=== PATIENT | female | born 1960 | race Caucasian/White ===

== ENCOUNTER 2021-05-20 09:15 | Inpatient (IN) | payer MEDICARE, MEDICAID, SELFPAY ==
[2021-05-20] VITALS (13 sets, daily range): BP systolic 124–141; BP diastolic 68–76; PULSE 86–116; RESP 16–26; TEMP 36.3–36.9; O2SAT 84–96; BMI 54.7; BMI 56.0
--- NOTE | 2021-05-20 09:18 | XRR_ITS ---
PROCEDURE INFORMATION: Exam: XR Chest Exam date and time: 05/20/2021 9:18 AM Age: 61 years old Clinical indication: Cough and dyspnea; Additional info: Dyspnea/cough TECHNIQUE: Imaging protocol: XR of the chest. Views: 1 view. COMPARISON: No relevant prior studies available. FINDINGS: Lungs: Right lower lobe interstitial congestion is seen. Right upper lobe and left lung are clear. No consolidation. Pleural spaces: Unremarkable. No pleural effusion. No pneumothorax. Heart/Mediastinum: Unremarkable. No cardiomegaly. Bones/joints: Unremarkable. XR/XR chest 1V portable [id number] IMPRESSION: 1. Right lower lobe interstitial congestion 2. Otherwise No acute findings.
--- NOTE | 2021-05-20 09:19 | ECG_ITS ---
[facility] Test Date: 2021-05-20 Pat Name: Melissa Mackenzie Department: Room: Gender: Female Senior Support Engineer: : 1960 Requested By: Joey Shoemaker Order Number: [id number] Jorgito MD: Daly Sebastian M.D. Measurements Intervals Ramona Rate: 102 P: 57 MS: 148 QRS: 1 QRSD: 106 T: 45 QT: 348 QTc: 455 Interpretive Statements SINUS TACHYCARDIA POSSIBLE LEFT ATRIAL ENLARGEMENT [-0.1mV P-WAVE IN V1/V2] SEPTAL MYOCARDIAL INFARCTION , OF INDETERMINATE AGE [40+ ms Q WAVE IN V1/V2] No previous ECG available for comparison Electronically Signed On 05-20-2021 17:04:46 FOOD SANITARIAN by Daly Sebastian M.D. [id number]
[2021-05-20 09:24] LABS: ABG PCO2 86.1 mmHg (35-45); ABG PH Result 7.34 (7.35-7.45); Arterial Blood Gas Hematocrit 43.9 % (37-47); Base Excess ABG 15.5 mmol/L (-2.0-2.0); Blood Gas Allen Test Pos; Blood Gas Operator Identificat GD; Blood Gas Sample Site Radial, right; Blood Gas Sample Type Arterial; Carboxyhemoglobin 3.7 %THgb (0.4-20.1); HGB O2 Sat 78.5 % (95-100); Ionized Calcium Level - ABG 1.2 mmol/L (1.1-1.4); Methemoglobin 0.8 % (0.4-1.5); Oxygen Device NC; Oxygen Saturation ABG 82.2; PO2 ABG 46.7 mmHg (80.0-100.0); Potassium Level - ABG 4.8 mmol/L (3.5-5.0); Total Hemoglobin 14.3 g/dL (12-16)
--- NOTE | 2021-05-20 09:36 | W.ED.SOB ---
HPI - SOB/Dyspnea General: Chief Complaint: Shortness of Breath/Dyspnea Stated Complaint: Shortness of breath Time Seen by Provider: 05/20/21 09:17 Source: patient Mode of arrival: ambulatory Limitations: no limitations History of Present Illness: HPI Narrative: 61-year-old female presents via EMS with acute hypoxic respiratory failure report of sats 82% on 4 L. Normally she wears 2 L by nasal cannula she is been turning it up to 4 L on arrival here she is continued hypoxic she was given several nebulizer treatments and Solu-Medrol in route as well as nebulized Decadron. On arrival here patient continues to be hypoxic in the low 80s on EMS BiPAP and then on 6 L by nasal cannula she was swapped to an nonrebreather sats improved into the low 90s. She denies any chest pain she has had increased swelling in her leg and significant orthopnea increased cough that has been nonproductive MD elicited complaint: shortness of breath and cough Onset (ago): hour(s) Timing: constant Severity: severe Exacerbating factors: lying flat, exertion and coughing Associated symptoms: Reports chest congestion, cough, myalgias, nausea and orthopnea; Deny abdominal pain, chest pain, diaphoresis, dizziness, extremity pain, fever(s), hemoptysis, lightheadedness, palpitations, paresthesias, polydipsia, polyuria, rash, sense of impending doom, syncope or vomiting Treatment prior to arrival: oxygen, bronchodilator and other (Nebulized steroids) Review of Systems Const: Denies: fever(s) or diaphoresis ENMT: Denies: throat pain, ear or mastoid pain, nasal discharge or nasal congestion Card: Reports: orthopnea; Denies: chest pain, palpitations, lightheadedness or syncope Resp: Reports: dyspnea, non-productive cough and chest congestion; Denies: hemoptysis GI: Reports: nausea; Denies: abdominal pain or vomiting : Denies: flank pain, difficulty voiding, dysuria, urinary frequency or urinary urgency Musc: Denies: extremity pain Skin/Breast: Denies: rash or pruritus Neuro: Denies: dizziness Endo: Denies: polyuria or polydipsia PFSH ED PFSH: Medical History COPD (chronic obstructive pulmonary disease) Morbid obesity Sleep apnea Social History Smoking and tobacco status: former smoker Alcohol intake: never Physical Exam Const: GENERAL APPEARANCE: cooperative and comfortable NUTRITIONAL APPEARANCE: obese ORIENTATION/CONSCIOUSNESS: Yes awake, Yes oriented to person, Yes oriented to place and Yes oriented to time HENMT: COMMON NORMALS: normocephalic HEAD & SCALP: normocephalic Resp: EFFORT & INSPECTION: Yes tachypneic, Yes labored, Yes grunting and Yes Actively coughing AUSCULTATION: crackles and wheezes Cardio: COMMON NORMALS: No murmurs present (Cardio) RATE: tachycardic GI: COMMON NORMALS: Soft to palpation and No hepatosplenomegaly present AUSCULTATION: Yes normoactive bowel sounds PALPATION: Yes Soft to palpation, No Tenderness to palpation present (GI), No Guarding due to palpation present (GI) and Yes No hepatosplenomegaly present Extremity: GENERAL: Yes edema Neuro: SENSORIUM/ORIENTATION: Yes oriented to person, Yes oriented to place and Yes oriented to time Course Vital Signs: Vital signs: Vital Signs Temperature 98.2 F 05/20/21 09:16 Pulse Rate 102 H 05/20/21 09:41 Respiratory Rate 18 05/20/21 09:24 Blood Pressure 128/73 05/20/21 09:24 Pulse Oximetry 93 05/20/21 09:41 MDM - SOB/Dyspnea Medical Decision Making Patient appears to be more fluid overloaded. COVID is negative. She is given Lasix and covering her with antibiotics as well. Discussed with Dr. Cherry orders written. She was given Lasix here in the emergency room. Echocardiogram ordered as well. Medical Records I reviewed the patient's medical records. Lab Data I reviewed the patient's lab results. : 05/20/21 09:47 05/20/21 09:47 Labs/Radiology: Radiology Impressions Chest X-Ray 05/20/21 09:18 IMPRESSION: 1. Right lower lobe interstitial congestion 2. Otherwise No acute findings. Laboratory Results WBC 8.3 10^3/uL (4.0-10.0) 05/20/21 09:47 RBC 4.90 10^6/uL (4.1-5.3) 05/20/21 09:47 Hgb 13.8 g/dL (11.5-15.3) 05/20/21 09:47 Hct 48.9 % (37.0-47.0) H 05/20/21 09:47 MCV 99.8 fl (81-99) H 05/20/21 09:47 MCH 28.2 pg (28.0-34.0) 05/20/21 09:47 MCHC 28.2 g/dL (30.0-36.0) L 05/20/21 09:47 RDW 15.9 % (12.1-15.1) H 05/20/21 09:47 Plt Count 170 10^3/cmm (130-400) 05/20/21 09:47 MPV 10.8 fL (7.4-10.4) H 05/20/21 09:47 Neut % (Auto) 85.2 % 05/20/21 09:47 Lymph % (Auto) 10.0 % 05/20/21 09:47 [place] % (Auto) 3.7 % 05/20/21 09:47 Eos % (Auto) 0.4 % 05/20/21 09:47 Baso % (Auto) 0.2 % 05/20/21 09:47 Neut # (Auto) 7.08 10^3/uL (1.8-7.7) 05/20/21 09:47 Lymph # (Auto) 0.8 10^3/uL (0.8-4.8) 05/20/21 09:47 [place] # (Auto) 0.3 10^3/uL (0.2-0.9) 05/20/21 09:47 Eos # (Auto) 0.0 10^3/uL (0.0-0.8) 05/20/21 09:47 Baso # (Auto) 0.0 10^3/uL (0.0-0.1) 05/20/21 09:47 Nucleated RBC % (auto) 0 % 05/20/21 09:47 Nucleated RBCs # 0.0 /100WBC 05/20/21 09:47 Specimen Type Arterial 05/20/21 11:20 Sample Site Radial, left 05/20/21 11:20 ABG pH 7.38 (7.35-7.45) 05/20/21 11:20 ABG pCO2 78.5 mmHg (35-45) H* 05/20/21 11:20 ABG pO2 61.0 mmHg (80.0-100.0) L 05/20/21 11:20 ABG HCO3 45.9 mmol/L (22-26) H 05/20/21 11:20 ABG O2 Saturation 92.7 05/20/21 11:20 ABG Base Excess 16.2 mmol/L (-2.0-2.0) H 05/20/21 11:20 Irineo Test Pos 05/20/21 11:20 A-a O2 Gradient 17.4 mmHg (5-10) H 05/20/21 11:20 Hematocrit 45.6 % (37-47) 05/20/21 11:20 Hgb O2 Saturation 88.9 % (95-100) L 05/20/21 11:20 Carboxyhemoglobin 3.4 %THgb (0.4-20.1) 05/20/21 11:20 Methemoglobin 0.7 % (0.4-1.5) 05/20/21 11:20 Total Hemoglobin 14.9 g/dL (12-16) 05/20/21 11:20 Sodium 141.0 mmol/L (131-143) 05/20/21 11:20 Potassium 4.7 mmol/L (3.5-5.0) 05/20/21 11:20 Glucose 256.0 mg/dL (70-115) H 05/20/21 11:20 Ionized Calcium 1.2 mmol/L (1.1-1.4) 05/20/21 11:20 O2 Delivery Device Bipap 05/20/21 11:20 O2 Liters/Min 6.0 % 05/20/21 09:10 FiO2 40.0 % 05/20/21 11:20 Travel Freight And Passenger Agent ID [id number] 05/20/21 11:20 Sodium 140 mmol/L (136-145) 05/20/21 09:47 Potassium 5.0 mmol/L (3.5-5.1) 05/20/21 09:47 Chloride 94 mmol/L (98-107) L 05/20/21 09:47 Carbon Dioxide 35 mmol/L (22-29) H 05/20/21 09:47 Anion Gap 16.0 (5-19) 05/20/21 09:47 BUN 10 mg/dL (8-23) 05/20/21 09:47 Creatinine 0.4 mg/dL (0.5-0.9) L 05/20/21 09:47 GFR Calculation 161.2 mL/min (90-130) H 05/20/21 09:47 Glucose 236 mg/dL (65-115) H 05/20/21 09:47 Calculated Osmolality 297 mOsm/kg (285-295) H 05/20/21 09:47 Calcium 9.8 mg/dL (8.5-10.5) 05/20/21 09:47 Total Bilirubin 0.4 mg/dL (0.15-1.2) 05/20/21 09:47 AST 18 U/L (0-32) 05/20/21 09:47 ALT 13 U/L (0-33) 05/20/21 09:47 Alkaline Phosphatase 105 IU/L (35-105) 05/20/21 09:47 Troponin T Baseline 16 ng/L (0-10) H 05/20/21 09:47 Troponin T 120 Minute 15.27 ng/L (0-10) H 05/20/21 12:14 Delta Troponin T -0.73 ABS# (0-10) L 05/20/21 12:14 Total Protein 6.9 g/dL (6.6-8.7) 05/20/21 09:47 Albumin 3.9 g/dL (3.5-5.2) 05/20/21 09:47 Globulin 3.0 g/dL (1.3-4.6) 05/20/21 09:47 Coronavirus 229E (PCR) Not detected (NOT DETECT) 05/20/21 09:37 SARS-CoV-2 (PCR) Not detected (NOT DETECT) 05/20/21 09:37 Discharge Plan Discharge Patient Disposition: Admitted As Inpatient Clinical Impression: Congestive heart failure, COPD (chronic obstructive pulmonary disease), Sleep apnea, Morbid obesity, Acute hypercapnic respiratory failure Prescriptions: No Action Advair Diskus 250-50 mcg/dose blister with device 1 ea inhalation BID 0RF Vitamin C 1,000 mg Tablet 1,000 mg PO DAILY 0RF albuterol sulfate 2.5 mg /3 mL (0.083 %) solution for nebulization 2.5 mg inhalation QID PRN (Reason: Shortness Of Breath) 0RF aspirin 325 mg Tablet 325 mg PO BID 0RF glipizide 10 mg tablet 10 mg PO BID 0RF potassium chloride 20 mEq tablet,ER particles/crystals 20 meq PO DAILY 0RF Super B Complex Tablet 1 tab PO DAILY 0RF albuterol sulfate 90 mcg/actuation HFA aerosol inhaler 2 puff INHALATION Q4H PRN (Reason: Shortness Of Breath) 0RF lisinopril 40 mg tablet 40 mg PO QAM 0RF vitamin E 400 unit Capsule 400 unit PO DAILY 0RF Cinnamon 500 mg Capsule 1,000 mg PO DAILY 0RF Vitamin D3 50 mcg (2,000 unit) Capsule 50 mcg PO DAILY 0RF magnesium oxide 400 mg magnesium Tablet 400 mg PO BID 0RF Gluctrol 1 tab PO DAILY 0RF Referrals: Zachary Sherwood [Primary Care Provider] - Patient Instructions: Opioid Safety Coding Level of Care Code ED Tax Senior Associate for [employer] Fwd Exam Detailed
[2021-05-20 10:06] LABS: Basophils % 0.2 %; Eosinophils % 0.4 %; Hematocrit 48.9 % (37.0-47.0); Hemoglobin 13.8 g/dL (11.5-15.3); Lymphocytes # 0.8 10^3/uL (0.8-4.8); Mean Corpuscular HGB Conc 28.2 g/dL (30.0-36.0); Mean Corpuscular Hemoglobin 28.2 pg (28.0-34.0); Mean Corpuscular Volume 99.8 fl (81-99); Mean Platelet Volume 10.8 fL (7.4-10.4); Monocytes # 0.3 10^3/uL (0.2-0.9); Monocytes % 3.7 %; Neutrophils # 7.08 10^3/uL (1.8-7.7); Neutrophils % 85.2 %; Nucleated Red Blood Cells % 0 %; Platelet Count 170 10^3/cmm (130-400); Red Cell Distribution Width 15.9 % (12.1-15.1); White Blood Count 8.3 10^3/uL (4.0-10.0)
[2021-05-20 10:22] LABS: Alanine Aminotransferase 13 U/L (0-33); Albumin Level 3.9 g/dL (3.5-5.2); Alkaline Phosphatase 105 IU/L (35-105); Blood Urea Nitrogen 10 mg/dL (8-23); Calcium 9.8 mg/dL (8.5-10.5); Carbon Dioxide 35 mmol/L (22-29); Chloride 94 mmol/L (98-107); Glomerular Filtration Rate 161.2 mL/min (90-130); Glucose 236 mg/dL (65-115); Osmolality Calculated 297 mOsm/kg (285-295); Sodium 140 mmol/L (136-145); Total Bilirubin 0.4 mg/dL (0.15-1.2); Total Protein 6.9 g/dL (6.6-8.7)
[2021-05-20 10:25] LABS: Aspartate Amino Transferase 18 U/L (0-32)
[2021-05-20 10:33] LABS: Troponin(5th) Baseline 16 ng/L (0-10)
--- NOTE | 2021-05-20 10:37 | PC.PHAR ---
pt states she has a person from [facility] named burak that sets up her [phone]-burak states the pts stop taking her glipizide 10mg bid last week-states the pt only took her pravastatin 40mg for 3 weeks then stop taking ext med history shows last filled 03/29/21 30d/s-states the pt was suppose to be taking metformin 1000mg bid states the pt hasnt taken in months ext med history shows last filled 500mg bid on 01/29/21 37d/s-burak states the pt takes her otc meds like she should-notes are made in the pharmacy comments
[2021-05-20] MEDS: FUROsemide 10 mg/mL SDV 4mL 40 MG IVP ×2 (11:14→20:20)
--- NOTE | 2021-05-20 11:19 | ECG_ITS ---
[facility] Test Date: 2021-05-20 Pat Name: Melissa Mackenzie Department: Room: Gender: Female Vice President Fixed Income: : 1960 Requested By: Joey Shoemaker Order Number: [id number] Jorgito MD: Daly Sebastian M.D. Measurements Intervals Canones Rate: 108 P: 117 NH: 165 QRS: 203 QRSD: 97 T: 138 QT: 323 QTc: 434 Interpretive Statements SINUS TACHYCARDIA ARM LEADS REVERSED [INVERTED P AND QRS IN I] ABNORMAL RHYTHM ECG Compared to ECG 05/20/2021 09:30:11 Myocardial infarct finding no longer present Electronically Signed On 05-20-2021 17:20:43 GLASS ARTIST by Daly Sebastian M.D. [email or web address].[employer]/store/OM/[id number]
[2021-05-20 11:36] LABS: ABG PCO2 78.5 mmHg (35-45); ABG PH Result 7.38 (7.35-7.45); Alveolar-Arterial Oxygen Gradi 17.4 mmHg (5-10); Arterial Blood Gas Hematocrit 45.6 % (37-47); Base Excess ABG 16.2 mmol/L (-2.0-2.0); Blood Gas Allen Test Pos; Blood Gas Operator Identificat GD; Blood Gas Sample Site Radial, left; Blood Gas Sample Type Arterial; Carboxyhemoglobin 3.4 %THgb (0.4-20.1); HCO3 ABG 45.9 mmol/L (22-26); HGB O2 Sat 88.9 % (95-100); Ionized Calcium Level - ABG 1.2 mmol/L (1.1-1.4); Methemoglobin 0.7 % (0.4-1.5); Oxygen Device BIPAP; Oxygen Saturation ABG 92.7; Potassium Level - ABG 4.7 mmol/L (3.5-5.0); Total Hemoglobin 14.9 g/dL (12-16)
[2021-05-20 11:46] LABS: Adenovirus Not Detected (NOT DETECT); Chlamydia Pneumoniae Not Detected (NOT DETECT); Coronavirus 229E,HKU1,NL63,OC4 Not Detected (NOT DETECT); Human Metapneumovirus Not Detected (NOT DETECT); Human Rhinovirus/Enterovirus Not Detected (NOT DETECT); Influenza A Not Detected (NOT DETECT); Influenza A H1 Not Detected (NOT DETECT); Influenza A H1-2009 Not Detected (NOT DETECT); Influenza A H3 Not Detected (NOT DETECT); Influenza B Not Detected (NOT DETECT); Mycoplasma Pneumoniae Not Detected (NOT DETECT); Parainfluenza Virus Type 1 Not Detected (NOT DETECT); Parainfluenza Virus Type 2 Not Detected (NOT DETECT); Parainfluenza Virus Type 3 Not Detected (NOT DETECT); Parainfluenza Virus Type 4 Not Detected (NOT DETECT); Respiratory Syncytial Virus A Not Detected (NOT DETECT); Respiratory Syncytial Virus B Not Detected (NOT DETECT); SARS-COV-2 Not Detected (NOT DETECT)
[2021-05-20 12:40] LABS: Troponin 5 2HR 15.27 ng/L (0-10)
[2021-05-20 12:41] LABS: Troponin 5 2HR Delta -0.73 ABS# (0-10)
--- NOTE | 2021-05-20 12:47 | P.HP_ITS ---
Providers/Chief Complaint Admitting Physician: Augie Valle MD, hospitalist Primary Care Provider: Zachary Sherwood Chief Complaint: Shortness of breath History of Present Illness Melissa Mackenzie is a 61 year old female who presents with 2 months of gradual increase in shortness of breath, as well as some lower extremity swelling. She reports she is not been able to elevate her legs as much as she had wished and she does have some history of chronic edema. She was so short of breath today, that she came into the emergency department. She had increased her oxygen to 4 L over the last 1 to 2 days secondary to increasing dyspnea. She has had no chest discomfort, hemoptysis, blood in stool, black or tarry stool. She has had no fever. She is not vaccinated for Covid. She denies any ill exposures. She has not had any vomiting, or nausea. History of being more short of breath when she lies down. She reports she quit smoking recently. In the emergency department it appears she got a dose of IV Lasix. Review of Systems General: Reports: 10 or more systems reviewed and unremarkable except in HPI and below Const: Denies: fever(s) Eyes: Denies: change in vision ENMT: Denies: throat pain Card: Reports: edema, swelling of feet/ankles and orthopnea; Denies: chest pain Resp: Reports: dyspnea; Denies: productive cough GI: Denies: abdominal pain, nausea or vomiting : Denies: flank pain Musc: Denies: neck pain Skin/Breast: Denies: rash Neuro: Denies: headache(s) Psych: Denies: anxiety Endo: Denies: polyuria Ar/Lymph: Denies: easy bruising All/Imm: Denies: urticaria Medications/Allergies Home Medications Medication Instructions Recorded Confirmed Last Taken Type Gluctrol 1 tab PO DAILY 05/20/21 05/20/21 05/19/21 History albuterol sulfate 2.5 mg INHALATION QID PRN 05/20/21 05/20/21 Unknown History albuterol sulfate 90 mcg/actuation 2 puff INHALATION Q4H PRN 05/20/21 05/20/21 Unknown History aerosol inhaler ascorbic acid (vitamin C) 1,000 mg 1,000 mg PO DAILY 05/20/21 05/20/21 Unknown History tablet (Vitamin C) aspirin 325 mg tablet 325 mg PO BID 05/20/21 05/20/21 05/19/21 History cholecalciferol (vitamin D3) 50 50 mcg PO DAILY 05/20/21 05/20/21 Unknown History mcg (2,000 unit) capsule (Vitamin D3) cinnamon bark 500 mg capsule 1,000 mg PO DAILY 05/20/21 05/20/21 05/19/21 History (Cinnamon) fluticasone 250 mcg-salmeterol 50 1 ea INHALATION BID 05/20/21 05/20/21 Unknown History mcg/dose blistr powdr for inhalation (Advair Diskus) glipizide 10 mg tablet 10 mg PO BID 05/20/21 05/20/21 05/13/21 History pt dced a week ago lisinopril 40 mg tablet 40 mg PO QAM 05/20/21 05/20/21 05/19/21 History magnesium oxide 400 mg PO BID 05/20/21 05/20/21 05/19/21 History potassium chloride 20 mEq 20 meq PO DAILY 05/20/21 05/20/21 05/19/21 History tablet,extended release(part/cryst) vitamin B complex 1 tab PO DAILY 05/20/21 05/20/21 05/19/21 History vitamin E 400 unit capsule 400 unit PO DAILY 05/20/21 05/20/21 05/19/21 History Allergies Allergy/AdvReac Type Severity Reaction Status Date / Time No Known Allergies Allergy Verified 05/20/21 10:41 PFSH Acute PFSH: Medical History (Updated 05/20/21 @ 12:57 by Augie Valle MD) COPD (chronic obstructive pulmonary disease) Diabetes mellitus type 2 in obese Hypertension Morbid obesity Sleep apnea Social History Smoking and tobacco status: former smoker Alcohol intake: never Other PFSH information: Supplemental PFSH Information: No significant pertinent surgical history, or family history. She does not have a family history of polycythemia. Reports she recently stopped smoking, days 2 weeks ago. Vitals/I&O/Wt Last Vital Signs Temp 98.2 F 05/20/21 09:16 Pulse 102 H 05/20/21 09:41 Resp 18 05/20/21 09:24 BP 128/73 05/20/21 09:24 Pulse Ox 93 05/20/21 09:41 Weight last 48 hrs Weight 129.274 kg Physical Exam Narrative: General exam is a white female, who is able to talk some, currently on BiPAP with an FiO2 setting of 40% HEENT: Pupils equally round. Oropharynx not examined is BiPAP in place. Neck is supple, obese Cardiovascular slight tachycardia, regular, no murmur, heart sounds distant Lungs diminished breath sounds bilaterally but I do not auscultate any wheezing. No crackles. Abdomen is soft obese nontender. No obvious organomegaly exam is deferred Extremities 2+ edema bilaterally with evidence of venous stasis changes bilaterally. Cap refill brisk. Skin no rash other than what stated above Neuro no obvious focal deficits. Urinary Catheter Management: Noel: Cath Placed During This Visit: yes Urinary Catheter Date of Insertion: 05/20/21 Urinary Catheter Time of Insertion: 12:31 Data : 05/20/21 09:47 05/20/21 09:47 Other Labs: Initial ABG demonstrated pH 7.34 with significant elevation in PCO2. Repeat ABG demonstrates a pH of 7.38, PCO2 78, PO2 of 61 on BiPAP at 40% LFTs normal Troponin XVI with repeat of 15 with no significant delta Urinalysis pending. 2+ blood. Micro pending. Negative nitrates Covid PCR negative Chest x-ray of poor quality, cardiomegaly is noted. Possible infiltrate right lung per radiology EKG sinus tachycardia, normal axis, biphasic P wave in V1, Q waves V1 and 2 and poor R wave progression possibly suggesting anterior MS in the past A&P Assessment and plan (1) Acute hypercapnic respiratory failure: Patient with significant acute hypercapnic and hypoxic respiratory failure on admission, most consistent with acute COPD exacerbation. Currently on BiPAP, will wean as tolerated Secondary to hypercarbia we will try to keep saturation around 90%. Status: Acute (2) COPD exacerbation: Consistent with acute COPD exacerbation Initiate IV steroids Pulmonary toilet every 4 hours Budesonide nebulized twice daily Secondary to possibility of pneumonia, acute bronchitis initiate Levaquin 750 mg daily IV Sputum culture Status: Acute (3) Congestive heart failure: Certainly appears fluid overloaded, although some element of venous stasis in her lower extremities. Check BNP Secondary to abnormal EKG and appearance of CHF check echocardiogram Most consistent with the appearance of acute diastolic heart failure. Continue diuresis with Lasix 40 mg IV every 12 hours Noel placed for accurate I&O measurement Telemetry Status: Acute (4) Morbid obesity: Encourage weight loss Status: Acute (5) Tobacco dependency: Congratulated her on her recent tobacco abstinence. Status: Acute (6) Sleep apnea: Encourage use of BiPAP while sleeping. She has not been compliant at home from what I understand. Status: Acute (7) Diabetes mellitus type 2 in obese: Sliding scale insulin Status: Acute Plan Hypertension Multiple other medical problems as stated in the past medical history Full code Lovenox for DVT prophylaxis Attestations Medical Necessity Statement*: Will need greater than 2 midnight stay for evaluation and treatment of acute COPD exacerbation. Coding Level of Care Code Acute Stockkeeper for Alli Arana Diagnoses Acute hypercapnic respiratory failure J96.02 COPD exacerbation J44.1 Congestive heart failure I50.9 Morbid obesity E66.01 Tobacco dependency F17.200 Sleep apnea G47.30 Diabetes mellitus type 2 in obese E11.69; E66.9
[2021-05-20 12:49] LABS: Bilirubin Urine Neg (Negative); Blood Urine 2+ (Negative); Glucose Urine UA Norm (Normal); Ketones Urine Negative (Negative); Leukocyte Esterase Urine Negative (Negative); Nitrate Urine Negative (Negative); Protein Urine Neg (Negative); Specific Gravity, Urine 1.015 (1.005-1.030); Urine Appearance SL Hazy (CLEAR); Urine Color Yellow (Yellow); Urobilinogen Urine Norm (Negative); pH Urine 5 (5-7)
[2021-05-20 12:50] LABS: Add Urine Microscopic? YES
[2021-05-20 13:04] LABS: RBC Urine 0-4 /hpf (0-2); WBC Urine RARE /hpf (0-5)
[2021-05-20 13:05] LABS: Bacteria Urine 1+ /hpf
[2021-05-20 13:06] LABS: Add Urine Culture? No; Mucus Urine TRACE /hpf
[2021-05-20] MEDS: enoxaparin 40 mg/0.4 mL Syringe SUBCUT (14:07)
[2021-05-20] MEDS: levofloxacin-dextrose 5 % 750 MG/150 ML PREMIX 100 MG IV (14:08)
[2021-05-20 14:54] LABS: NT Pro B Type Natriuretic Pept 493 pg/mL (0-125); Thyroid Stimulating Hormone 0.95 uIU/mL (0.27-4.20)
[2021-05-20] MEDS: ipratropium-albuterol 3 mL Neb INHALATION ×3 (15:00→23:20)
--- NOTE | 2021-05-20 15:19 | ECG_ITS ---
[facility] Test Date: 2021-05-20 Pat Name: Melissa Mackenzie Department: Room: 254 Gender: Female Seismograph Recorder: : 1960 Requested By: Joey Shoemaker Order Number: [id number] Jorgito MD: Daly Sebastian M.D. Measurements Intervals Daphne Rate: 104 P: 64 ID: [id number] QRS: 57 QRSD: 101 T: 40 QT: 361 QTc: 476 Interpretive Statements SINUS TACHYCARDIA POSSIBLE LEFT ATRIAL ENLARGEMENT [-0.1mV P WAVE IN V1/V2] SEPTAL MYOCARDIAL INFARCTION , OF INDETERMINATE AGE [40+ ms Q WAVE IN V1/V2] Compared to ECG 05/20/2021 11:12:55 Myocardial infarct finding now present Electronically Signed On 05-20-2021 17:25:19 NURSING CARE ATTENDANT by Daly Sebastian M.D. [id number]
[2021-05-20 17:01] LABS: Glucose Point of Care 296 mg/dL (70-110)
[2021-05-20 17:14] LABS: Troponin 5 6HR 12.59 ng/L (0-10)
[2021-05-20 17:16] LABS: Troponin 5 6HR Delta -3.41 ng/L (0-12)
[2021-05-20] MEDS: insulin lispro 100 unit/1 mL SUBCUT ×2 (17:44→21:50)
[2021-05-20] MEDS: aspirin 325 mg Tablet PO (17:44)
[2021-05-20] MEDS: magnesium oxide 400 mg tablet PO (17:44)
--- NOTE | 2021-05-20 18:08 | PC.NURSE ---
Patient arrived from ED around 1330. Got settled into room and on Bipap. Admission complete. Patient stayed on bipap until 1700 then switched to oxy mask. Patient sat at edge of bed for dinner. Noel intact and clean, with good output. Vital signs stable. Monitoring blood sugar. Will continue to monitor and will give report to night nurse.
[2021-05-20] MEDS: budesonide 0.5 mg/2 mL Neb INHALATION (20:14)
[2021-05-20 21:01] LABS: Glucose Point of Care 249 mg/dL (70-110)
[2021-05-21] VITALS (15 sets, daily range): BP systolic 101–142; BP diastolic 60–76; PULSE 82–115; RESP 17–20; TEMP 36.7–36.9; O2SAT 89–95
[2021-05-21] MEDS: lanolin oint 7 gm 1 APPLIC TOPICAL (00:38)
[2021-05-21] MEDS: ipratropium-albuterol 3 mL Neb INHALATION ×5 (03:30→20:52)
[2021-05-21 05:15] LABS: Basophils % 0.2 %; Hematocrit 47.6 % (37.0-47.0); Hemoglobin 13.6 g/dL (11.5-15.3); Lymphocytes # 0.8 10^3/uL (0.8-4.8); Lymphocytes % 8.5 %; Mean Corpuscular HGB Conc 28.6 g/dL (30.0-36.0); Mean Corpuscular Hemoglobin 28.2 pg (28.0-34.0); Mean Corpuscular Volume 98.8 fl (81-99); Mean Platelet Volume 11.1 fL (7.4-10.4); Monocytes # 0.3 10^3/uL (0.2-0.9); Monocytes % 3.4 %; Neutrophils # 8.24 10^3/uL (1.8-7.7); Neutrophils % 87.4 %; Nucleated Red Blood Cells % 0 %; Platelet Count 181 10^3/cmm (130-400); Red Blood Count 4.82 10^6/uL (4.1-5.3); Red Cell Distribution Width 15.8 % (12.1-15.1); White Blood Count 9.4 10^3/uL (4.0-10.0)
[2021-05-21 05:36] LABS: Alanine Aminotransferase 11 U/L (0-33); Albumin Level 3.5 g/dL (3.5-5.2); Alkaline Phosphatase 94 IU/L (35-105); Aspartate Amino Transferase 13 U/L (0-32); Blood Urea Nitrogen 16 mg/dL (8-23); Chloride 89 mmol/L (98-107); Globulin 3.6 g/dL (1.3-4.6); Glomerular Filtration Rate 161.2 mL/min (90-130); Glucose 212 mg/dL (65-115); Osmolality Calculated 295 mOsm/kg (285-295); Sodium 139 mmol/L (136-145); Total Bilirubin 0.5 mg/dL (0.15-1.2); Total Protein 7.1 g/dL (6.6-8.7)
[2021-05-21 05:40] LABS: Anion Gap 11.5 (5-19); Potassium 4.5 mmol/L (3.5-5.1)
[2021-05-21 05:41] LABS: Carbon Dioxide 43 mmol/L (22-29)
[2021-05-21] MEDS: lisinopril 20 mg Tablet 40 MG PO (05:55)
[2021-05-21 06:23] LABS: Glucose Point of Care 227 mg/dL (70-110)
[2021-05-21] MEDS: budesonide 0.5 mg/2 mL Neb INHALATION ×2 (07:45→20:52)
[2021-05-21] MEDS: magnesium oxide 400 mg tablet PO ×2 (08:09→17:33)
[2021-05-21] MEDS: insulin lispro 100 unit/1 mL SUBCUT ×4 (08:09→21:52)
[2021-05-21] MEDS: acetaZOLAMIDE 250 mg Tablet PO (08:09)
[2021-05-21] MEDS: FUROsemide 10 mg/mL SDV 4mL 40 MG IVP (08:09)
[2021-05-21] MEDS: aspirin 325 mg Tablet PO ×2 (08:10→17:33)
--- NOTE | 2021-05-21 08:43 | PM.PN ---
Documented by User: DINA Malcolm STDKT 05/21/21 09:13 Subjective Subjective: Melissa Mackenzie is a 61 year old female being followed for COPD exacerbation and respiratory failure. Patient explains that she does feel better today compared to when she arrived at the ED. Patient is eating and drinking without difficulty. No fevers or chills. Patient was on BiPAP for most of day, was off for a few hours for dinner and then wore again from 2200 to 0400, patient then transitioned to oxymask at 0749. Oxygen saturations charted have remained >92%. Patient was on 6L O2 per [place] when visiting with patient, at 4L SpO2 85%, at 5Ls SpO2 increased to 88-91%. Medications: Reviewed: Yes Vitals/I&O/Wt Last Vital Signs Temp 98.1 F 05/21/21 04:00 Pulse 96 05/21/21 08:04 Resp 18 05/21/21 08:00 BP 124/74 05/21/21 08:00 Pulse Ox 94 05/21/21 08:00 05/20/21 05/21/21 05/21/21 22:59 06:59 14:59 Intake Total 270 / 270 Output Total 850 / 850 2150 / 3000 Balance -580 / -580 -2150 / -2730 Weight last 48 hrs Weight 130.181 kg Weight 129.274 kg Physical Exam Narrative: General: White, obese female sitting up in bed eating breakfast, talking comfortably. Cardiac: Tachycardiac, regular rhythm. S1 S2 present. Heart sounds distant. No murmurs rubs or gallops. Respiratory: Clear to auscultation. No wheezes rales or rhonchi. Air entry equal bilaterally. Extremities: Statsis dermatitis present. No cyanosis, clubbing, or edema. 1+ pitting edema still present. Neuro: No focal neurological deficits. Psych: Appropriate affect, mood is anxious. Judgment is appropriate. Urinary Catheter Management: [place]: Cath Placed During This Visit: yes Reason for Continuing Indwelling Catheter: Other Urinary Catheter Date of Insertion: 05/20/21 Urinary Catheter Time of Insertion: 12:31 Data : 05/21/21 04:14 05/21/21 04:14 Other Labs: Neutrophils elevated to 8.24 likely due to steroids Bicarb 43 due to diuresis Glucose 212 A&P Assessment and plan (1) Acute hypercapnic respiratory failure: Status: Acute (2) COPD exacerbation: Status: Acute (3) Congestive heart failure: Status: Acute (4) Morbid obesity: Status: Acute (5) Tobacco dependency: Status: Acute (6) Sleep apnea: Status: Acute (7) Diabetes mellitus type 2 in obese: Status: Acute Plan 1. Acute Hypercapnic Respiratory Failure Patient's bicarb has increased to 43 due to diueresis. Start acetazolomide for hypercarbia Continue BiPAP and wean as tolerated. Will allow saturations of 87% as long as patient is comfortable. 2. COPD Exacerbation Patient's dyspnea is improving, continues to have cough that produces sputum, patient feels that she can't get it up. Discontinue IV steroids, start PO Prednisone Pulmonary toilet every 4 hours Budesonide nebulized twice daily Continue levaquin for possibility of pneumonia. Sputum culture pending. 3. Congestive Heart Failure Patients fluid status appears improved from yesterday, her fluid status is at -2730 mls. Bicarb is rising, however. BNP slightly elevated at 493. Echocardiogram attempted by radiology on 2 separate times, unable to complete due to patient inability to lie flat, will attempt again tomorrow 05/22/21. Change lasix 40 mg frequency to q24 hours Fluid restriction of 1500 mls Continue apodaca for I&O management Continue telemetry 4. Morbid Obesity Encourage weight loss 5. Tobacco dependency Patient explains she recently quit smoking 2 days ago, explained she will see benefit over next 1-3 months. 6. Sleep apnea Continue use of BiPAP when sleeping 7. Diabetes Mellitus Type 2 Sliding scale insulin Carb consistent diet Patient is a full code, continue Lovenox for DVT prophylaxis. 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 Patient explains that she does feel better today compared to when she arrived at the ED. Patient is eating and drinking without difficulty. No fevers or chills. Patient was on BiPAP for most of day, was off for a few hours for dinner and then wore again from 2200 to 0400, patient then transitioned to oxymask at 0749. Oxygen saturations charted have remained >92%. Patient was on 6L O2 per [place] when visiting with patient, at 4L SpO2 85%, at 5Ls SpO2 increased to 88-91%. Overall patient reports that she feels better than yesterday. Less short of breath. Currently off BiPAP on 5 L. Agree with what is written above. Physical Exam Narrative: General: White, obese female sitting up in bed eating breakfast, talking comfortably. Cardiac: Tachycardiac, regular rhythm. S1 S2 present. Heart sounds distant. No murmurs rubs or gallops. Respiratory: Clear to auscultation. No wheezes rales or rhonchi. Air entry equal bilaterally. Extremities: Statsis dermatitis present. No cyanosis, clubbing, or edema. 1+ pitting edema still present. Neuro: No focal neurological deficits. Psych: Appropriate affect, mood is anxious. Judgment is appropriate. I examined the patient as well. Agree with assessment above. Her lower extremity edema has improved since yesterday and there are some small wrinkles noted in the skin of her ankles. She has also diuresed 3700 cc. Urinary Catheter Management: [place]: Cath Placed During This Visit: yes Data : 05/21/21 04:14 05/21/21 04:14 A&P Assessment and plan (1) Acute hypercapnic respiratory failure: Status: Acute (2) COPD exacerbation: Status: Acute (3) Congestive heart failure: Status: Acute (4) Morbid obesity: Status: Acute (5) Tobacco dependency: Status: Acute (6) Sleep apnea: Status: Acute (7) Diabetes mellitus type 2 in obese: Status: Acute Plan 1. Acute Hypercapnic Respiratory Failure Patient's bicarb has increased to 43 due to diueresis. Start acetazolomide for hypercarbia Continue BiPAP and wean as tolerated. Will allow saturations of 87% as long as patient is comfortable. 2. COPD Exacerbation Patient's dyspnea is improving, continues to have cough that produces sputum, patient feels that she can't get it up. Discontinue IV steroids, start PO Prednisone Pulmonary toilet every 4 hours Budesonide nebulized twice daily Continue levaquin for possibility of pneumonia. Sputum culture pending. 3. Congestive Heart Failure Patients fluid status appears improved from yesterday, her fluid status is at -2730 mls. Bicarb is rising, however. BNP slightly elevated at 493. Echocardiogram attempted by radiology on 2 separate times, unable to complete due to patient inability to lie flat, will attempt again tomorrow 05/22/21. Change lasix 40 mg frequency to q24 hours Fluid restriction of 1500 mls Continue apodaca for I&O management Continue telemetry 4. Morbid Obesity Encourage weight loss 5. Tobacco dependency Patient explains she recently quit smoking 2 days ago, explained she will see benefit over next 1-3 months. 6. Sleep apnea Continue use of BiPAP when sleeping 7. Diabetes Mellitus Type 2 Sliding scale insulin Carb consistent diet 8. Weakness. Patient reports legs have given way recently when she tried to get up. We will involve physical therapy. Patient is a full code, continue Lovenox for DVT prophylaxis. Attestations Medical Necessity Statement*: Needs continued hospitalization for treatment of COPD exacerbation. Still on a significant amount of oxygen from her baseline. 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
[2021-05-21] MEDS: predniSONE 20 mg Tablet 40 MG PO (09:09)
[2021-05-21 11:05] LABS: Glucose Point of Care 234 mg/dL (70-110)
[2021-05-21] MEDS: levofloxacin-dextrose 5 % 750 MG/150 ML PREMIX 100 MG IV (13:11)
[2021-05-21] MEDS: enoxaparin 40 mg/0.4 mL Syringe SUBCUT (14:26)
--- NOTE | 2021-05-21 16:17 | PC.NURSE ---
Patients vitals stable throughout shift. Patient is stating in low 90s on 5 L NC. Noel has put out 4.6 L, clean and intact. Patient has not complained of any pain. Patient has been in chair for most of shift. No bowel movement. Patient is scheduled to get an ECHO tomorrow. Will continue to monitor and give report to night nurse.
[2021-05-21 16:59] LABS: Glucose Point of Care 224 mg/dL (70-110)
[2021-05-21] MEDS: efferdent effervescent 1 EACH DENTAL (17:34)
[2021-05-21] MEDS: fixodent 39 gm Tube 1 APPLIC DENTAL (17:34)
[2021-05-21 21:10] LABS: Glucose Point of Care 189 mg/dL (70-110)
[2021-05-22] VITALS (19 sets, daily range): BP systolic 102–140; BP diastolic 66–96; PULSE 75–107; RESP 16–19; TEMP 36.5–37; O2SAT 88–96
--- NOTE | 2021-05-22 | USCV_ITS ---
Transthoracic Echo Melissa Mackenzie Age: 61 Gender: F : 1960 Exam Date: 05/22/2021 02:11 Ordering Phys: Augie Valle MD Technologist: JANICE Exam Location: [facility] [place] Indication: CHF BP: 140 / 80 HR: 100 Rhythm: Sinus Technical Quality: Adequate MEASUREMENTS (Male / Female) Normal Values 2D ECHO LV Diastolic Diameter PLAX 4.9 cm 4.2 - 5.9 / 3.9 - 5.3 cm LV Systolic Diameter PLAX 4.1 cm IVS Diastolic Thickness 1.1 cm 0.6 - 1.0 / 0.6 - 0.9 cm IVS Systolic Thickness 1.6 cm LVPW Diastolic Thickness 2.5 cm 0.6 - 1.0 / 0.6 - 0.9 cm LVPW Systolic Thickness 2.6 cm LVOT Diameter 2.2 cm LV Ejection Fraction 2D Teich 34.3 % LV Ejection Fraction MOD 2C 77.4 % LV Ejection Fraction 2C AL 76.7 % LA Diameter 5.5 cm LA Width 4.7 cm LA Height 6.5 cm Aorta at Sinotubular Diameter 1.8 cm M-MODE Aortic Annulus Diameter 2.7 cm LA Ao Ratio MM 2.6 DOPPLER AV Peak Velocity 241.0 cm/s LVOT Peak Velocity 62.0 cm/s AV Area Cont Eq vti 1.3 cm squared AV Area Cont Eq pk 1.0 cm squared MV Peak Velocity 93.0 cm/s MV Area PHT 3.1 cm squared Mitral E to A Ratio 2.0 MV E' Velocity 90.0 cm/s TR Peak Velocity 154.4 cm/s TR Peak Gradient 9.5 mmHg TR Mean Velocity 73.4 cm/s TR Mean Gradient 2.4 mmHg TR Velocity Time Integral 21.4 cm TV Peak E Velocity 71.0 cm/s Right Atrial Pressure 13.0 mmHg Pulmonary Artery Systolic Pressu 22.5 mmHg RV Acceleration Time 0.1 s RV Ejection Time 0.4 s RV AcT/ET 0.2 FINDINGS Left Ventricle Limited quality echocardiogram because of poor ultrasonic windows. Normal left ventricular size. LV systolic function is grossly normal. Regional wall motion abnormalities cannot be assessed because of poor visualization. Grade II diastolic dysfunction Right Ventricle The right ventricle is normal in size and function. Right Atrium The right atrium is normal in size. Left Atrium The left atrium is dilated Mitral Valve Mitral valve is thickened without significant stenosis or prolapse. There is mild mitral regurgitation. Aortic Valve Aortic valve is thickened. There is mild aortic stenosis with KENDALL of 1.46cm2 and mean gradient across the valve of 7.5mmHg. There is no aortic regurgitation. Tricuspid Valve Structurally normal tricuspid valve without significant stenosis, Mild tricuspid regurgitation. Insufficient TR jet to calculate RVSP Pulmonic Valve Not well-visualized Pericardium Normal pericardium without effusion. Aorta Normal ascending aorta dimension. CONCLUSIONS Dose. LV systolic function is grossly normal. Grade 2 diastolic dysfunction is noted. Left atrium is dilated. Mitral valve is thickened. Mild mitral regurgitation noted. Aortic valve is thickened. Mild aortic stenosis noted. Mild tricuspid regurgitation. No comparison studies are available. Kishore Carr MD (Electronically Signed) Final Date: 22 May 2021 15:02 S
[2021-05-22] MEDS: ipratropium-albuterol 3 mL Neb INHALATION ×6 (00:05→20:41)
[2021-05-22 05:17] LABS: Basophils % 0.3 %; Eosinophils % 0.1 %; Hematocrit 47.2 % (37.0-47.0); Hemoglobin 13.6 g/dL (11.5-15.3); Lymphocytes # 2.7 10^3/uL (0.8-4.8); Lymphocytes % 23.4 %; Mean Corpuscular HGB Conc 28.8 g/dL (30.0-36.0); Mean Corpuscular Hemoglobin 28.5 pg (28.0-34.0); Mean Platelet Volume 10.7 fL (7.4-10.4); Monocytes # 0.9 10^3/uL (0.2-0.9); Monocytes % 7.8 %; Neutrophils # 7.98 10^3/uL (1.8-7.7); Neutrophils % 68.1 %; Nucleated Red Blood Cells % 0 %; Platelet Count 182 10^3/cmm (130-400); Red Blood Count 4.77 10^6/uL (4.1-5.3); Red Cell Distribution Width 16.1 % (12.1-15.1); White Blood Count 11.7 10^3/uL (4.0-10.0)
[2021-05-22 05:48] LABS: Anion Gap 14.4 (5-19); Blood Urea Nitrogen 21 mg/dL (8-23); Calcium 9.5 mg/dL (8.5-10.5); Carbon Dioxide 35 mmol/L (22-29); Chloride 94 mmol/L (98-107); Glomerular Filtration Rate 124.6 mL/min (90-130); Glucose 157 mg/dL (65-115); Magnesium 1.9 mg/dL (1.7-2.3); Osmolality Calculated 296 mOsm/kg (285-295); Potassium 3.4 mmol/L (3.5-5.1); Sodium 140 mmol/L (136-145)
[2021-05-22] MEDS: lisinopril 20 mg Tablet 40 MG PO (06:06)
[2021-05-22 06:27] LABS: Glucose Point of Care 155 mg/dL (70-110)
[2021-05-22] MEDS: potassium chloride ER 20 mEq Tablet 40 MEQ PO ×2 (08:15→17:36)
[2021-05-22] MEDS: magnesium oxide 400 mg tablet PO ×2 (08:17→17:36)
[2021-05-22] MEDS: acetaZOLAMIDE 250 mg Tablet PO (08:17)
[2021-05-22] MEDS: FUROsemide 10 mg/mL SDV 4mL 40 MG IVP (08:17)
[2021-05-22] MEDS: insulin lispro 100 unit/1 mL SUBCUT ×4 (08:17→20:31)
[2021-05-22] MEDS: predniSONE 20 mg Tablet 40 MG PO (08:17)
[2021-05-22] MEDS: aspirin 325 mg Tablet PO ×2 (08:17→17:36)
[2021-05-22] MEDS: budesonide 0.5 mg/2 mL Neb INHALATION ×2 (08:19→20:41)
--- NOTE | 2021-05-22 09:10 | P.PN_ITS ---
Documented by User: DINA Malcolm STDKT 05/22/21 12:42 Subjective Subjective: Melissa Mackenzie is a 61 year old female being followed for COPD exacerbation and respiratory failure. Patient explains that she continues to feel better, explains that she is more in the world today. She continues to have a cough but is improving. She was able to lie flat for echocardiogram, which she was unable to do previously. Discussed importance of quitting smoking and weight loss in regards to quality of life. She explains that she wore her BiPAP for a couple of hours last night. She is on HFNC 4Ls today. Medications: Reviewed: Yes Vitals/I&O/Wt Last Vital Signs Temp 97.8 F 05/22/21 04:00 Pulse 89 05/22/21 08:28 Resp 18 05/22/21 08:22 BP 140/74 05/22/21 04:00 Pulse Ox 92 05/22/21 08:22 05/21/21 05/22/21 05/22/21 22:59 06:59 14:59 Intake Total 240 / 630 Output Total 750 / 4350 1000 / 5350 Balance -510 / -3720 -1000 / -4720 Weight last 48 hrs Weight 130.181 kg Weight 129.274 kg Physical Exam Narrative: General: White, obese female sitting up in chair eating breakfast. Cardiac: Tachycardiac, regular rhythm. S1 S2 present. No murmurs rubs or gallops. Respiratory: Improved air movement bilaterally, rales and end expiratory wh eezing present. Extremities: Lower extremity pitting edema much improved. Wrinkles present bilaterally. No cyanosis, clubbing, or edema. Hyperpigmentation present. Neuro: No focal neurological deficits. Psych: Improved mood, less anxious. Judgement is appropriate. Urinary Catheter Management: [place]: Cath Placed During This Visit: yes Reason for Continuing Indwelling Catheter: Other Urinary Catheter Date of Insertion: 05/20/21 Urinary Catheter Time of Insertion: 12:31 Data : 05/22/21 04:48 05/22/21 04:48 Other Labs: Leukocytosis and neutrophils present likely due to steroids. Bicarb elevated at 35, trending down from 43 Potassium 3.4 Glucose 157 Micro: Microbiology 05/20/21 17:35 Gram Stain - Final Sputum - Expectorated Sputum A&P Assessment and plan (1) Acute hypercapnic respiratory failure: Status: Acute (2) COPD exacerbation: Status: Acute (3) Congestive heart failure: Status: Acute (4) Morbid obesity: Status: Acute (5) Tobacco dependency: Status: Acute (6) Sleep apnea: Status: Acute (7) Diabetes mellitus type 2 in obese: Status: Acute Plan 1. Acute Hypercapnic Respiratory Failure Overall patient is feeling much better, her bicarb is trending downward but remains elevated at 35. Continue acetazolomide for hypercarbia Continue BiPAP, Oxymask, HFNC, or NC and wean as tolerated. Allow saturations of 87% as patient remains comfortable 2. COPD Exacerbation Patient's dyspnea is improving, cough continues to improve, continues to feel like she can't get rid of sputum with cough Continue PO prednisone Pulmonary toilet q4 hours Budesonide nebulized BID Continue levaquine for possible pneumonia Sputum culture still pending Discussed possibility of pulmonary rehabilitation as an outpatient 3. Congestive Heart Failure Patient's fluid status continues to improve, she continues to lose fluid, total fluid lost is now at -7450 mls. Echocardiogram was able to be completed this morning, report still pending. Continue lasix 40 mg every 24 hours, patient developed hypokalemia due to loop diuretic, was given one dose of 40 mEq of KCl Continue fluid restriction of 1500 mls Continue apodaca for I&O management Continue telemetry 4. Morbid Obesity Discussed advantages in quality of life with weight loss 5. Tobacco Dependence Discussed advantage in control of COPD and quality of life with tobacco abstinence. 6. Sleep Apnea Continue use of BiPAP with sleep Discussed advantages to using machine at night at home Pulse-oximetry testing ordered 7. Diabetes Mellitus Type 2 Sliding scale insulin Carb consistent diet Continue lovenox for DVT prophylaxis. Full code Discharge Planning: Discussed with patient the possibility of discharge to home tomorrow. Would expect patient to continue to eat and drink without difficulty. Continue to experiencing improving dyspnea and cough, and maintain oxygenation >87% on supplemental oxygen. 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 Patient explains that she continues to feel better, explains that she is more in the world today. She continues to have a cough but is improving. She was able to lie flat for echocardiogram, which she was unable to do previously. Discussed importance of quitting smoking and weight loss in regards to quality of life. She explains that she wore her BiPAP for a couple of hours last night. She is on HFNC 4Ls today. Agree with above. Patient reports she is feeling much better today. Physical Exam Narrative: General: White, obese female sitting up in chair eating breakfast. Cardiac: Tachycardiac, regular rhythm. S1 S2 present. No murmurs rubs or gallops. Respiratory: Improved air movement bilaterally, rales and end expiratory wheezing present. Extremities: Lower extremity pitting edema much improved. Wrinkles present bilaterally. No cyanosis, clubbing, or edema. Hyperpigmentation present. Neuro: No focal neurological deficits. Psych: Improved mood, less anxious. Judgement is appropriate. No changes from above. She does have significantly improved aeration bilaterally as documented above. Urinary Catheter Management: [place]: Cath Placed During This Visit: yes Data : 05/22/21 04:48 05/22/21 04:48 A&P Assessment and plan (1) Acute hypercapnic respiratory failure: Status: Acute (2) COPD exacerbation: Status: Acute (3) Congestive heart failure: Status: Acute (4) Morbid obesity: Status: Acute (5) Tobacco dependency: Status: Acute (6) Sleep apnea: Status: Acute (7) Diabetes mellitus type 2 in obese: Status: Acute Plan 1. Acute Hypercapnic Respiratory Failure Overall patient is feeling much better, her bicarb is trending downward but remains elevated at 35. Continue acetazolomide for hypercarbia Continue BiPAP, Oxymask, HFNC, or NC and wean as tolerated. Allow saturations of 87% as patient remains comfortable 2. COPD Exacerbation Patient's dyspnea is improving, cough continues to improve, continues to feel like she can't get rid of sputum with cough Continue PO prednisone Pulmonary toilet q4 hours Budesonide nebulized BID Continue levaquine for possible pneumonia Sputum culture still pending Discussed possibility of pulmonary rehabilitation as an outpatient She continues to improve significantly and likely discharge will occur in the next 1 to 2 days. 3. Congestive Heart Failure Patient's fluid status continues to improve, she continues to lose fluid, total fluid lost is now at -7450 mls. Echocardiogram was able to be completed this morning, report still pending. Continue lasix 40 mg every 24 hours, patient developed hypokalemia due to loop diuretic, was given one dose of 40 mEq of KCl Continue fluid restriction of 1500 mls Continue apodaca for I&O management Continue telemetry Cumulative diuresis currently at this time is 7210 4. Morbid Obesity Discussed advantages in quality of life with weight loss 5. Tobacco Dependence Discussed advantage in control of COPD and quality of life with tobacco abstinence. 6. Sleep Apnea Continue use of BiPAP with sleep Discussed advantages to using machine at night at home Pulse-oximetry testing ordered Hopefully we can provide BiPAP at discharge. 7. Diabetes Mellitus Type 2 Sliding scale insulin Carb consistent diet Continue lovenox for DVT prophylaxis. Full code Discharge Planning: Discussed with patient the possibility of discharge to home tomorrow. Would expect patient to continue to eat and drink without difficulty. Continue to experiencing improving dyspnea and cough, and maintain oxygenation >87% on supplemental oxygen. Agree with that documented above. Overall she is improving significantly and I anticipate discharge in the next 1 to 2 days. Continue pulmonary toilet, prednisone, Levaquin currently. Attestations Medical Necessity Statement*: Needs continued hospital stay, for pulmonary toilet, IV antibiotic for acute COPD exacerbation with respiratory failure. Coding Level of Care Code Acute Hvac Service Tech for [facility] Diagnoses Acute hypercapnic respiratory failure J96.02 COPD exacerbation J44.1 Congestive heart failure I50.9 Morbid obesity E66.01 Tobacco dependency F17.200 Sleep apnea G47.30 Diabetes mellitus type 2 in obese E11.69; E66.9
--- NOTE | 2021-05-22 10:07 | PC.CHAP ---
Pastoral Care Encounter/Spiritual Assessment Type of Contact [] Declined therapy manager visit [] Patient/Family/Request visit [] Outpatient visit [] Follow-up visit [] Physician referral [] Code/Alert [x] Routine visit [] Staff referral [] Actively dying [] Patient sleeping [] Family support [] [] Out of room [] Palliative care [] [] Receiving care in room [] Pre-surgical visit [] Trauma [] Long length of stay [] ICU visit [] Other: Relational/Emotional Strength [x] Patient feels connected with others/family/visitors/staff [] Distress [] Loneliness/isolation [] Abandonment Spirituality of Patient [x] Person of Carly [x] Attends Yarsani of their Carly [] Believes in Prayer [] Reads Bible or Congregational materials [] There are Spiritual issues to be addressed Adjunct Spanish Instructor Interventions [x] Prayer [x] Active listening [x] Non-anxious presence [x] Spiritual/emotional support [] Crisis/trauma care [] Spiritual counseling [] Bereavement support [] Provided bereavement packet [] Provided Bible/devotional materials [] Provided toy/stuffed animal, coloring book to patient or family member [] Provided Communion [] Anointing/[place]yman [] Salvation [x] Completed spiritual assessment [] Other: Impact on Illness or Injury [] Angry [] Fearful [] Anxious [] Often cries [] Exhaustion [] Unable to work [] Unable to attend presybeterian [] Unable to walk/stand [] Unable to read [] Unable to drive [] Unable to eat/drink [] Unable to sleep [] Unable to be with family [] Patient intubated [] Other: Summary Time spent with patient 15 min
[2021-05-22 11:00] LABS: Glucose Point of Care 223 mg/dL (70-110)
[2021-05-22] MEDS: levofloxacin-dextrose 5 % 750 MG/150 ML PREMIX 100 MG IV (13:39)
[2021-05-22] MEDS: enoxaparin 40 mg/0.4 mL Syringe SUBCUT (13:45)
[2021-05-22 17:13] LABS: Glucose Point of Care 240 mg/dL (70-110)
[2021-05-22 20:35] LABS: Glucose Point of Care 201 mg/dL (70-110)
[2021-05-23] VITALS (10 sets, daily range): BP systolic 111–115; BP diastolic 57–73; PULSE 81–101; RESP 13–22; TEMP 36.9; O2SAT 85–99
[2021-05-23] MEDS: ipratropium-albuterol 3 mL Neb INHALATION ×3 (00:04→07:52)
--- NOTE | 2021-05-23 02:25 | PC.NURSE ---
2200 RT placed cpap on pt. Tolerates well.
[2021-05-23 05:22] LABS: Blood Urea Nitrogen 27 mg/dL (8-23); Calcium 8.7 mg/dL (8.5-10.5); Carbon Dioxide 34 mmol/L (22-29); Chloride 97 mmol/L (98-107); Glomerular Filtration Rate 124.6 mL/min (90-130); Glucose 150 mg/dL (65-115); Magnesium 2.2 mg/dL (1.7-2.3); Osmolality Calculated 294 mOsm/kg (285-295); Sodium 138 mmol/L (136-145)
[2021-05-23] MEDS: lisinopril 20 mg Tablet 40 MG PO (05:29)
[2021-05-23 05:31] LABS: Anion Gap 11.3 (5-19); Potassium 4.3 mmol/L (3.5-5.1)
[2021-05-23 06:19] LABS: Glucose Point of Care 153 mg/dL (70-110)
[2021-05-23] MEDS: budesonide 0.5 mg/2 mL Neb INHALATION (07:52)
[2021-05-23] MEDS: insulin lispro 100 unit/1 mL SUBCUT (08:48)
[2021-05-23] MEDS: aspirin 325 mg Tablet PO (08:49)
[2021-05-23] MEDS: predniSONE 20 mg Tablet 40 MG PO (08:49)
[2021-05-23] MEDS: FUROsemide 10 mg/mL SDV 4mL 40 MG IVP (08:49)
[2021-05-23] MEDS: magnesium oxide 400 mg tablet PO (08:49)
[2021-05-23] MEDS: acetaZOLAMIDE 250 mg Tablet PO (08:49)
--- NOTE | 2021-05-23 08:52 | PM.DCS ---
Discharge Providers Date of Admission: 05/20/21 11:52 Date of Discharge: May 23, 2021 Attending Provider at Admission: Augie Valle MD Attending Provider at Discharge: Augie Valle MD Primary Care Provider: Gilbert Tang Diagnoses at Discharge Discharge Diagnosis (1) Acute hypercapnic respiratory failure: Status: Acute (2) COPD exacerbation: Status: Acute (3) Congestive heart failure: Status: Acute (4) Morbid obesity: Status: Acute (5) Tobacco dependency: Status: Acute (6) Sleep apnea: Status: Acute (7) Diabetes mellitus type 2 in obese: Status: Acute Reason for Visit Reason for Visit: Shortness of breath Hospital Course Hospital Course Melissa presented to the hospital with 2 months of increasing shortness of breath, lower extremity edema, and obvious acute hypoxic and hypercarbic respiratory failure. Chest x-ray was difficult to interpret secondary to weight. Covid PCR was negative. She was placed on Levaquin IV, IV steroids, pulmonary toilet, and IV diuretics. Ultimately an echocardiogram was obtained demonstrating 2/4 diastolic dysfunction and preserved EF. Admission presentation was also consistent with acute diastolic heart failure. During her hospital stay she did well able to be weaned off BiPAP. She eventually was weaned down to 5 L, at which time she was doing well enough to transition home on oral antibiotics, oral steroids, with close follow-up with her primary care provider. Referral to pulmonary clinic will also be given. She will continue Lasix 40 mg p.o. daily for diastolic heart failure. I discussed with the patient the treatment plan, and she is in agreement. She will discharge with home health. She was applauded at her decision to stop smoking. Physical Exam Narrative: General exam no distress Neck is supple Cardiovascular regular rate rhythm Lungs a faint expiratory wheeze bilaterally at the bases Abdomen is soft with positive bowel sounds, obese Extremities trace edema, much improved from admission Urinary Catheter Management: Noel: Cath Placed During This Visit: yes Reason for Continuing Indwelling Catheter: Accurate Measurement of Urinary Output in Critically Ill Patients Urinary Catheter Date of Insertion: 05/20/21 Urinary Catheter Time of Insertion: 12:31 Discharge Data Studies Completed and Pending Completed Studies During Hospitalization Category Date Time Status XR chest 1V portable [id number] Stat Exams 05/20/21 09:18 Completed CV. echo complete* [id number] Routine Ultrasound 05/22/21 Completed Pending at discharge Category Date Time Status Sputum Culture and Gram Stain Routine Lab 05/20/21 17:35 Results Radiology Impressions Chest X-Ray 05/20/21 09:18 IMPRESSION: 1. Right lower lobe interstitial congestion 2. Otherwise No acute findings. Laboratory Results WBC 11.7 10^3/uL (4.0-10.0) H 05/22/21 04:48 RBC 4.77 10^6/uL (4.1-5.3) 05/22/21 04:48 Hgb 13.6 g/dL (11.5-15.3) 05/22/21 04:48 Hct 47.2 % (37.0-47.0) H 05/22/21 04:48 MCV 99.0 fl (81-99) 05/22/21 04:48 MCH 28.5 pg (28.0-34.0) 05/22/21 04:48 MCHC 28.8 g/dL (30.0-36.0) L 05/22/21 04:48 RDW 16.1 % (12.1-15.1) H 05/22/21 04:48 Plt Count 182 10^3/cmm (130-400) 05/22/21 04:48 MPV 10.7 fL (7.4-10.4) H 05/22/21 04:48 Neut % (Auto) 68.1 % 05/22/21 04:48 Lymph % (Auto) 23.4 % 05/22/21 04:48 [place] % (Auto) 7.8 % 05/22/21 04:48 Eos % (Auto) 0.1 % 05/22/21 04:48 Baso % (Auto) 0.3 % 05/22/21 04:48 Neut # (Auto) 7.98 10^3/uL (1.8-7.7) H 05/22/21 04:48 Lymph # (Auto) 2.7 10^3/uL (0.8-4.8) 05/22/21 04:48 [place] # (Auto) 0.9 10^3/uL (0.2-0.9) 05/22/21 04:48 Eos # (Auto) 0.0 10^3/uL (0.0-0.8) 05/22/21 04:48 Baso # (Auto) 0.0 10^3/uL (0.0-0.1) 05/22/21 04:48 Nucleated RBC % (auto) 0 % 05/22/21 04:48 Nucleated RBCs # 0.0 /100WBC 05/22/21 04:48 Specimen Type Arterial 05/20/21 11:20 Sample Site Radial, left 05/20/21 11:20 ABG pH 7.38 (7.35-7.45) 05/20/21 11:20 ABG pCO2 78.5 mmHg (35-45) H* 05/20/21 11:20 ABG pO2 61.0 mmHg (80.0-100.0) L 05/20/21 11:20 ABG HCO3 45.9 mmol/L (22-26) H 05/20/21 11:20 ABG O2 Saturation 92.7 05/20/21 11:20 ABG Base Excess 16.2 mmol/L (-2.0-2.0) H 05/20/21 11:20 Iirneo Test Pos 05/20/21 11:20 A-a O2 Gradient 17.4 mmHg (5-10) H 05/20/21 11:20 Hematocrit 45.6 % (37-47) 05/20/21 11:20 Hgb O2 Saturation 88.9 % (95-100) L 05/20/21 11:20 Carboxyhemoglobin 3.4 %THgb (0.4-20.1) 05/20/21 11:20 Methemoglobin 0.7 % (0.4-1.5) 05/20/21 11:20 Total Hemoglobin 14.9 g/dL (12-16) 05/20/21 11:20 Sodium 141.0 mmol/L (131-143) 05/20/21 11:20 Potassium 4.7 mmol/L (3.5-5.0) 05/20/21 11:20 Glucose 256.0 mg/dL (70-115) H 05/20/21 11:20 Ionized Calcium 1.2 mmol/L (1.1-1.4) 05/20/21 11:20 O2 Delivery Device Bipap 05/20/21 11:20 O2 Liters/Min 6.0 % 05/20/21 09:10 FiO2 40.0 % 05/20/21 11:20 Nutrition Services Aide ID Gd 05/20/21 11:20 Sodium 138 mmol/L (136-145) 05/23/21 04:32 Potassium 4.3 mmol/L (3.5-5.1) 05/23/21 04:32 Chloride 97 mmol/L (98-107) L 05/23/21 04:32 Carbon Dioxide 34 mmol/L (22-29) H 05/23/21 04:32 Anion Gap 11.3 (5-19) 05/23/21 04:32 BUN 27 mg/dL (8-23) H 05/23/21 04:32 Creatinine 0.5 mg/dL (0.5-0.9) 05/23/21 04:32 GFR Calculation 124.6 mL/min (90-130) 05/23/21 04:32 Glucose 150 mg/dL (65-115) H 05/23/21 04:32 POC Glucose 153 mg/dL (70-110) H 05/23/21 06:10 Calculated Osmolality 294 mOsm/kg (285-295) 05/23/21 04:32 Calcium 8.7 mg/dL (8.5-10.5) 05/23/21 04:32 Magnesium 2.2 mg/dL (1.7-2.3) 05/23/21 04:32 Total Bilirubin 0.5 mg/dL (0.15-1.2) 05/21/21 04:14 AST 13 U/L (0-32) 05/21/21 04:14 ALT 11 U/L (0-33) 05/21/21 04:14 Alkaline Phosphatase 94 IU/L (35-105) 05/21/21 04:14 Troponin T Baseline 16 ng/L (0-10) H 05/20/21 09:47 Troponin T 120 Minute 15.27 ng/L (0-10) H 05/20/21 12:14 Delta Troponin T -0.73 ABS# (0-10) L 05/20/21 12:14 Troponin T Hi Sens 6Hr 12.59 ng/L (0-10) H 05/20/21 16:25 Troponin T Hi Sens 6Hr Delta -3.41 ng/L (0-12) L 05/20/21 16:25 NT-Pro-B Natriuret Pep 493 pg/mL (0-125) H 05/20/21 09:47 Total Protein 7.1 g/dL (6.6-8.7) 05/21/21 04:14 Albumin 3.5 g/dL (3.5-5.2) 05/21/21 04:14 Globulin 3.6 g/dL (1.3-4.6) 05/21/21 04:14 TSH 0.95 uIU/mL (0.27-4.20) 05/20/21 09:47 Urine Color Yellow (Yellow) 05/20/21 11:26 Urine Appearance Sl hazy (CLEAR) 05/20/21 11:26 Urine pH 5 (5-7) 05/20/21 11:26 Ur Specific Gladys 1.015 (1.005-1.030) 05/20/21 11:26 Urine Protein Neg (Negative) 05/20/21 11:26 Urine Glucose (UA) Norm (Normal) 05/20/21 11:26 Urine Ketones Negative (Negative) 05/20/21 11:26 Urine Blood 2+ (Negative) H 05/20/21 11:26 Urine Nitrate Negative (Negative) 05/20/21 11:26 Urine Bilirubin Neg (Negative) 05/20/21 11:26 Urine Urobilinogen Norm mg/dL (Negative) 05/20/21 11:26 Ur Leukocyte Esterase Negative (Negative) 05/20/21 11:26 Urine RBC 0-4 /hpf (0-2) H 05/20/21 11:26 Urine WBC Rare /hpf (0-5) 05/20/21 11:26 Ur Squamous Epith Cells 5-10 /hpf (0-5) H 05/20/21 11:26 Amorphous Sediment Not Reportable 05/20/21 11:26 Urine Bacteria 1+ /hpf (NONE) H 05/20/21 11:26 Urine Mucus Trace /hpf 05/20/21 11:26 Coronavirus 229E (PCR) Not detected (NOT DETECT) 05/20/21 09:37 SARS-CoV-2 (PCR) Not detected (NOT DETECT) 05/20/21 09:37 Vitals Last Vital Signs Temp 98.4 F 05/23/21 04:00 Pulse 88 05/23/21 07:53 Resp 20 H 05/23/21 07:53 BP 111/57 05/23/21 07:30 Pulse Ox 93 05/23/21 07:53 Discharge Plan Discharge Patient Disposition: Home Health Service Condition: Stable Prescriptions: New prednisone 20 mg Tablet 40 mg PO DAILY Qty: 6 0RF fluticasone propion-salmeterol [Advair Diskus] 500-50 mcg/dose blister with device 1 inh inhalation BID Qty: 60 0RF furosemide [Lasix] 40 mg tablet 40 mg PO QAM Qty: 30 0RF levofloxacin 750 mg tablet 750 mg PO DAILY 5 Days 0RF Spiriva with HandiHaler 18 mcg capsule, w/inhalation device 1 cap inhalation DAILY Qty: 30 0RF Rx Instructions: puncture 1 cap using device; one dose = 2 inhalations Continued albuterol sulfate 2.5 mg /3 mL (0.083 %) solution for nebulization 2.5 mg inhalation QID PRN (Reason: Shortness Of Breath) 0RF aspirin 325 mg Tablet 325 mg PO BID 0RF glipizide 10 mg tablet 10 mg PO BID 0RF potassium chloride 20 mEq tablet,ER particles/crystals 20 meq PO DAILY 0RF albuterol sulfate 90 mcg/actuation HFA aerosol inhaler 2 puff INHALATION Q4H PRN (Reason: Shortness Of Breath) 0RF lisinopril 40 mg tablet 40 mg PO QAM 0RF Vitamin D3 50 mcg (2,000 unit) Capsule 50 mcg PO DAILY 0RF magnesium oxide 400 mg magnesium Tablet 400 mg PO BID 0RF Gluctrol 1 tab PO DAILY 0RF Discontinued Advair Diskus 250-50 mcg/dose blister with device 1 ea inhalation BID 0RF Vitamin C 1,000 mg Tablet 1,000 mg PO DAILY 0RF Super B Complex Tablet 1 tab PO DAILY 0RF vitamin E 400 unit Capsule 400 unit PO DAILY 0RF Cinnamon 500 mg Capsule 1,000 mg PO DAILY 0RF Discharge Orders: Discharge Order (Routine); Ordered 05/23/21 Ordered By: Augie Valle Other Ambulatory Orders: DME: BIPAP (Order) Location: None Selected Ordered By: Augie Valle Referrals: [facility] [Outside] DatarOni MD [Physician] - 2 weeks (COPD) Gilbert Tang [Primary Care Provider] - 4-7 days (BMP on follow-up) Discharge Diet: Cardiac and Diabetic Discharge Activity: Increase activity as tolerated Patient Instructions: Opioid Safety Activity Restrictions/Additional Instructions: Wear BiPAP every night Take all medicine as prescribed Please arrange follow-up with pulmonary clinic in 2 weeks No smoking Consider having primary care provider refer you for pulmonary rehabilitation Encourage weight loss Discharge Attestations Time Spent in Discharge Care*: greater than 30 min Quality Metrics Clinical Quality Measures [ No reported AMI, CVA or VTE this stay] Coding Level of Care Code Acute Chg FW DC note Diagnoses Acute hypercapnic respiratory failure J96.02 COPD exacerbation J44.1 Congestive heart failure I50.9 Morbid obesity E66.01 Tobacco dependency F17.200 Sleep apnea G47.30 Diabetes mellitus type 2 in obese E11.69; E66.9
[2021-05-23 11:55] LABS: Glucose Point of Care 228 mg/dL (70-110)
--- NOTE | 2021-05-23 12:26 | PC.NURSE ---
Discharge Note Patient discharged to home via wheelchair accompanied by family. Discharge instructions reviewed with patient and/or technical sales representative. Mobile pharmacy medications and/or prescriptions provided. Belongings/home medications returned. Went over the COPD and CHF stop light with patient. Instructed patient to place on her fridge. Patient stated understanding. Answered all questions for patient and family.
--- NOTE | 2021-05-23 12:56 | PC.SOCIAL ---
IMM update IMM updated with patient. Verbalized an understanding. Copy Pg 2 provided. Initialled, dated, timed, and placed in chart.
== END 2021-05-23 13:16 | disposition home health service (06) | DRG 291 ==
LOC: ER 13:01 → MEDSURG 13:11
PROVIDERS: Admitting Provider Internal Medicine; Emergency Provider Family Medicine; PCP Nurse Practitioner Family; Visit Provider Internal Medicine
DX: I11.0 Hypertensive heart disease with heart failure (principal); I50.31 Acute diastolic (congestive) heart failure; J96.02 Acute respiratory failure with hypercapnia; J96.21 Acute and chronic respiratory failure with hypoxia; J44.1 Chronic obstructive pulmonary disease with (acute) exacerbation; Z68.43 Body mass index [BMI] 50.0-59.9, adult; Z99.81 Dependence on supplemental oxygen; E66.01 Morbid (severe) obesity due to excess calories; G47.30 Sleep apnea, unspecified; Z87.891 Personal history of nicotine dependence; E11.9 Type 2 diabetes mellitus without complications; I87.8 Other specified disorders of veins; Z79.51 Long term (current) use of inhaled steroids; Z79.84 Long term (current) use of oral hypoglycemic drugs
CPT/HCPCS: 36415; 36416; 36600; 51702; 71045; 80048; 80051; 80053; 81001; 82330; 82805; 82962; 83735; 83880; 84443; 84484; 85025; 87070; 87205; 87635; 93005; 93306; 94640; 94660; 94762; 96372; 96374; 96375; 97110; 97116; 97161; 99291; J1650; J1815; J1940; J1956; J2920; J7512; J7626